=== PATIENT | male | born 1985 | race Caucasian/White ===

== ENCOUNTER 2019-08-07 09:01 | Emergency (ER) | payer BC, SELFPAY ==
[2019-08-07 09:07] VITALS: BP 153/100; PULSE 100; RESP 17; TEMP 36.5; O2SAT 98
--- NOTE | 2019-08-07 09:33 | ED.GENADULT ---
HPI - General Adult General Chief complaint: Unspecified Stated complaint: Nose injury Time Seen by Provider: 08/07/19 09:05 History of Present Illness HPI narrative: Patient is a 33-year-old male who presents ER with pain at the top of his nose. Patient reports he is moving some items on a bookshelf when the shelf fell backwards and struck him in the face. Did not lose consciousness. Patient has a known cyst that sits over his nasal bridge and that is what was struck. The cyst is since significantly increased in size and is causing him to have slight headache. No difficulty breathing through his nose. No epistaxis. Related Data Home Medications Medication Instructions Recorded Confirmed No Home Medications 08/07/19 08/07/19 Allergies Allergy/AdvReac Type Severity Reaction Status Date / Time hydrocodone AdvReac Intermediate Rash Verified 08/07/19 09:10 Review of Systems Eyes: Eyes: Denies change in vision and Denies photophobia ENT: Comments: bridge of nose swelling. Neurologic: Denies dizziness, Denies syncope, Reports headache(s) and Denies numbness PMFSH Past Medical History Medical History (Updated 08/07/19 @ 09:54 by Sukhwinder Garcia MD) No pertinent past medical history Surgical History Surgical History (Updated 08/07/19 @ 09:49 by Sukhwinder Garcia MD) History of hernia surgery Social History Social History (Updated 08/07/19 @ 09:49 by Sukhwinder Garcia MD) Smoking status: Never smoker Gender identity (if verbalized by the patient): Male Exam Narrative: Exam Narrative: GENERAL: Well-appearing, well-nourished, and in no acute distress. HEAD: Normocephalic, atraumatic. EYES: PERRL and EOMI. ENT: Nares clear, no rhinorrhea or epistaxis. Swelling at bridge of nose w/o brusing, fluctuant c/w cyst. Mucous membranes moist. NEURO: Alert and oriented x3. PSYCH: Normal mood and affect. Course Vital Signs Vital signs: Vital Signs Temperature 97.7 F 08/07/19 09:07 Pulse Rate 100 08/07/19 09:07 Respiratory Rate 17 08/07/19 09:07 Blood Pressure 153/100 H 08/07/19 09:07 Pulse Oximetry 98 08/07/19 09:07 Temperature 97.7 F 08/07/19 09:07 Pulse Rate 100 08/07/19 09:07 Respiratory Rate 17 08/07/19 09:07 Blood Pressure 153/100 H 08/07/19 09:07 Pulse Oximetry 98 08/07/19 09:07 Procedures Abscess I/D face: Date of Incision: 08/07/19 Time of Incision: 09:35 Local Anesthetic: lidocaine 1% and with epi Amount of anesthesia used (mL): 0.3 Technique: incised with #11 blade Irrigation: No Packing used?: none I&D Results: Other (cystic material) Medical Decision Making Vital Signs Vital Signs: Vital Signs Temperature 97.7 F 08/07/19 09:07 Pulse Rate 100 08/07/19 09:07 Respiratory Rate 17 08/07/19 09:07 Blood Pressure 153/100 H 08/07/19 09:07 Pulse Oximetry 98 08/07/19 09:07 Temperature 97.7 F 08/07/19 09:07 Pulse Rate 100 08/07/19 09:07 Respiratory Rate 17 08/07/19 09:07 Blood Pressure 153/100 H 08/07/19 09:07 Pulse Oximetry 98 08/07/19 09:07 Discharge Plan Discharge Clinical Impression: Cyst of face Patient Disposition: Home, Self-Care Condition: Stable Instructions: Cyst (ED) Additional Instructions: You had a cyst over the bridge of your nose that became inflamed after trauma. It was incised and drained without issue. Return the ER if the skin becomes red and hot, you have fever over 100.4 ?F, you have additional concerns. If your cyst comes back, you may require a plastic surgeon to remove the cystic cavity. Prescriptions: No Action No Home Medications RF: 0 Follow-up/Referrals: Austin Huff Jr., MD [Physician] - 1 Week Giovani Centeno MD [Physician] - 2 Weeks PHYSICIAN,COLLAR SEPARATOR [Primary Care Provider] - Stand Alone Forms: Work/School Release IP
[2019-08-07 10:07] VITALS: BP 139/96; PULSE 92; RESP 16; O2SAT 98
== END 2019-08-07 10:10 | disposition home or self-care (01) ==
PROVIDERS: Emergency Provider Emergency Medicine
DX: L72.3 Sebaceous cyst (principal)
CPT/HCPCS: 10060; 99282